=== PATIENT | female | born 1945 | race Caucasian/White ===

== ENCOUNTER 2016-08-08 12:44 | Outpatient (CLI) ==
[2015-08-03 21:56] VITALS: BMI 34.9
--- NOTE | 2016-08-09 08:47 | MAMMO ---
EXAM: Digital screening mammogram HISTORY: Screening mammogram COMPARISON: Mammogram 10/29/2010 and 09/28/2009 FINDINGS: Bilateral CC and MLO views of the breasts were performed digitally and demonstrate scatte red fibroglandular it breast density (25-50%). There is no abnormal nodule or calcification. Benign calcifications are present bilaterally. There is no significant interval change. IMPRESSION: No suspicious nodule or calcification RECOMMENDATION: Annual screening mammogram BIRADS category II: Benign findings
== END 2016-08-08 12:45 | disposition home or self-care (01) ==
LOC: RAD 12:44
PROVIDERS: ATTEND Family Medicine
DX: Z12.31 Encounter for screening mammogram for malignant neoplasm of breast (principal)

== ENCOUNTER 2017-09-02 13:14 | Outpatient (CLI) ==
[2015-08-03 21:56] VITALS: BMI 34.9
--- NOTE | 2017-09-02 14:00 | DEXA ---
EXAM: Bone density HISTORY: Concern for osteopenia with calcium supplementation, vitamin D supplementation with history of arthritis COMPARISON: TECHNIQUE: Digital images of the thoracolumbar spine and bilateral hips were provided and calculatio n of bone density was obtained. FINDINGS: Digital images demonstrate no compression deformities of the thoracolumbar spine. DEXA scan of the lumbar spine is of good quality. The total BMD equals 1.198 grams per square centimeter. T-score is 1.0 and Z-score of 0.7. DEXA of the hips was performed and of good quality. Total bone marrow density of 0.974 grams per square centimeter. T score is - 0.3 and Z-score of 0.4 IMPRESSION: Bone density of the hips and lumbar spine demonstrate normal bone density by WHO criteri a. FRAX calculation tool demonstrates 10-year major osteoporotic fracture risk of 8.4% and hip fracture risk of 1.0% T score greater than -1 is normal T score -1 to -2.5 is osteopenia T score less than - 2.5 is osteoporosis
== END 2017-09-02 13:15 | disposition home or self-care (01) ==
LOC: RAD 13:14
PROVIDERS: ATTEND Family Medicine
DX: Z12.31 Encounter for screening mammogram for malignant neoplasm of breast (principal); Z78.0 Asymptomatic menopausal state; M19.90 Unspecified osteoarthritis, unspecified site; Z13.820 Encounter for screening for osteoporosis
CPT/HCPCS: 77067